=== PATIENT | female | born 1980 | race African-American/Black ===

== ENCOUNTER 2017-02-09 22:40 | Emergency (ER) | payer SELFPAY ==
[~2017-02-09] VITALS: Ht 165.1 cm; Wt 103.4 kg
[~2017-02-09 22:40] MED LIST: IBUPROFEN600 MG ORAL
[2017-02-09] MEDS ORDERED: NKM (22:48)
[2017-02-09] MEDS ORDERED: POLYMYXIN B-TMP10 M1 OP (23:26)
[2017-02-09] MEDS ORDERED: POLYTRIM OPTH LEFT EYE ONE (23:30)
--- NOTE | 2017-02-09 23:49 | Emergency Room Report ---
History of Present Illness General Chief Complaint: Eye Problems Source: Patient Present Illness HPI 36YOF walk in with left eye "red" with "white discharge". Was at [employer] where "lots of girls were splashing water from the jacuzzi into my eye." This morning, woke up and was "Red and looked infected." Denies fever/chills, pain with eye movement, headache, neck pain/stiffness. Doesnt wear contacts. Allergies: Coded Allergies: No Known Allergies (Unverified , 10/26/13) Patient History Past Medical History: none Past Surgical History: none Pertinent Family History: none Social History: Denies: alcohol use, drug use, smoking Last Menstrual Period: last week Now: No Immunizations: UTD Reviewed Nursing Documentation: PMH: Agreed, PSxH: Agreed Nursing Documentation-PMH Past Medical History: No Stated History Review of Systems All Other Systems: negative except mentioned in HPI Physical Exam Vital Signs Date Time Temp Pulse Resp B/P Pulse Ox O2 Delivery O2 Flow Rate FiO2 02/09/17 22:41 98.6 71 18 117/88 99 Room Air Sp02 EP Interpretation: reviewed, normal General Appearance: normal inspection, well appearing, no apparent distress, alert Head: atraumatic Eyes: bilateral eye EOMI, bilateral eye PERRL, bilateral eye other - Right eye : diffusely injected conjunctiva with white thick discharge ENT: normal ENT inspection, hearing grossly normal, normal voice Neck: normal inspection, full range of motion, supple, no bony tend Respiratory: normal inspection, lungs clear, normal breath sounds, no respiratory distress, no retraction, no wheezing Cardiovascular #1: regular rate, rhythm, no edema Gastrointestinal: normal inspection, normal bowel sounds, non tender, soft, no guarding, no hernia Genitourinary: no CVA tenderness Musculoskeletal: normal inspection, back normal, normal range of motion, Silvestre' s Sign negative Neurologic: normal inspection, alert, oriented x3, responsive, 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 Afebrile. Left eye only low suspicion for orbital cellulitis given well appearance, EOMI, afebrile, no soft tissue swelling around left eye Rx Eye drops Abx PMD followup as needed Last Vital Signs Date Time Temp Pulse Resp B/P Pulse Ox O2 Delivery O2 Flow Rate FiO2 02/09/17 22:41 98.6 71 18 117/88 99 Room Air Status: improved Disposition: HOME, SELF-CARE Condition: Improved Scripts Polymyxin B Sulf/Trimethoprim (POLYMYXIN B-TMP EYE DROPS) 10 Ml Drops 2 DROP OP FOUR TIMES A DAY for 7 Days, #1 UNIT Prov: GABBY GARCIA M.D. 02/09/17 Patient Instructions: Bacterial Conjunctivitis, Kslm-pv-Hris GABBY GARCIA M.D. Feb 09, 2017 23:49
[2017-02-10] MEDS ORDERED: OFLOXACIN5 ML OT (00:03)
[2017-02-10 00:21] VITALS: BP 117/78
[2017-02-10 00:26] VITALS: BP 117/78
== END 2017-02-10 00:25 | disposition home or self-care (01) ==
LOC: EMR 02-10 00:23
DX: H10.89 Other conjunctivitis (principal); B96.89 Other specified bacterial agents as the cause of diseases classified elsewhere
CPT/HCPCS: 99283